=== PATIENT | male | born 1985 | race Hispanic/Latino ===

== ENCOUNTER 2017-09-05 11:51 | Emergency (ER) | payer SELFPAY ==
--- NOTE | 2017-09-05 13:01 | XRay Report ---
Left hand 3 views: History: Possible fracture, pain. Findings: No bony articular abnormality. No fracture. No periosteal reaction or soft tissue calcification. Impression: Essentially negative left hand.
[2017-09-05] MEDS ORDERED: NORCO 5/325 PO ONE (14:08)
[2017-09-05] MEDS ORDERED: TORADOL IM ONE (14:08)
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
[2017-09-05 15:21] VITALS: BP 115/88
== END 2017-09-05 15:21 | disposition home or self-care (01) ==
LOC: ED 11:51
DX: S60.212A Contusion of left wrist, initial encounter (principal); S60.222A Contusion of left hand, initial encounter; S00.83XA Contusion of other part of head, initial encounter; F17.200 Nicotine dependence, unspecified, uncomplicated; Y04.2XXA Assault by strike against or bumped into by another person, initial encounter; Y93.89 Activity, other specified; Y99.8 Other external cause status; Y92.89 Other specified places as the place of occurrence of the external cause
CPT/HCPCS: 29125; 73130; 96372; 99283; J1885